=== PATIENT | female | born 1980 | race Caucasian/White ===

== ENCOUNTER 2017-07-28 00:21 | Emergency (ER) | payer OTHER ==
[~2017-07-28] VITALS: Ht 152.4 cm; Wt 72.6 kg
[2017-07-28 00:31] VITALS: BP_SYST 119
--- NOTE | 2017-07-28 01:50 | NUR ---
Placed in room 06 . To gown for exam. Side rails up. Report given to SHALOM Diallo.
--- NOTE | 2017-07-28 01:55 | NUR ---
Patient AAO x4, sitting in bed, c/o pain to rectum stating " I might have an abscess" patient states she used preparation H without relief, and states she "tried to have my pop it, but nothing happened and the pain got worse." No acute distress, patient denies N/V/D, denies constipation. Will continue to monitor.
--- NOTE | 2017-07-28 02:10 | NUR ---
ER at bedside examining patient.
[2017-07-28] MEDS ORDERED: LIDOCAINE 1%, 20 ML MDV 20 ML ONE (02:20)
[2017-07-28] MEDS: LIDOCAINE 1% 10 MG/ML, 20 ML MDV IJ ONE (02:30)
[2017-07-28] MEDS: DIPH-TET-PERTUS Vaccine 0.5 ML VIAL (ADACEL) IM ONE (02:41)
[2017-07-28] MEDS: IBUPROFEN 800 MG TABLET PO ONE (02:42)
[2017-07-28] MEDS: traMADol HCL HCL 50 MG TABLET (ULTRAM) PO ONE (02:43)
[2017-07-28 03:15] VITALS: BP_SYST 125
--- NOTE | 2017-07-28 03:15 | NUR ---
Patient given written and verbal discharge instructions and verbalizes understanding. ER MD discussed with patient the results and treatment provided. Patient in stable condition. ID arm band removed. Rx of bactrim, tramadol, motrin, senokot given. Patient educated on pain management and to follow up with PMD. Pain Scale 2/10 tolerable by patient . Opportunity for questions provided and answered.
== END 2017-07-28 03:15 | disposition home or self-care (01) ==
LOC: SED 00:21
DX: K64.4 Residual hemorrhoidal skin tags (principal)
CPT/HCPCS: 46083; 90471; 90715; 99284; J2001